=== PATIENT | female | born 1935 | race Hispanic/Latino ===

== ENCOUNTER 2016-10-11 10:32 | Outpatient (CLI) | payer OTHER ==
--- NOTE | 2016-10-11 12:41 | Cat Scan Report ---
CT of the chest without contrast. History: Lung mass. Findings: Small lymph nodes, some of which are calcified are seen in the mediastinum, but no adenopathy is present. Minimal pleural-parenchymal scarring is seen in the apices bilaterally. In the left lower lobe, there is pleural-parenchymal scarring posteriorly adjacent to a calcification which probably represents a granuloma. No additional pulmonary masses or nodules are seen. No pleural fluid is seen. Impression: Pleural-parenchymal scarring is seen in the left lower lobe and bilateral apices. A calcified granuloma is noted in the left lower lobe.
== END 2016-10-11 10:33 | disposition home or self-care (01) ==
LOC: CT 10:32
PROVIDERS: ATTEND Internal Medicine
DX: J84.10 Pulmonary fibrosis, unspecified (principal); R91.8 Other nonspecific abnormal finding of lung field
CPT/HCPCS: 71250